=== PATIENT | male | born 1980 | race Two or more races ===

== ENCOUNTER 2017-11-19 03:52 | Emergency (ER) | payer OTHER ==
[~2017-11-19] VITALS: Ht 172.7 cm; Wt 77.1 kg
[2017-11-19] MEDS ORDERED: MILLIPRED5 MG (04:14)
[2017-11-19] MEDS ORDERED: PEPCID AC20 MG PO (08:08)
[2017-11-19] MEDS ORDERED: MEDROLPACK PO (08:08)
== END 2017-11-19 08:58 | disposition home or self-care (01) ==
LOC: ER 03:52
DX: L50.0 Allergic urticaria (principal)